=== PATIENT | female | born 1955 | race Hispanic/Latino ===

== ENCOUNTER 2017-11-16 12:34 | Emergency (ER) | payer MEDICARE ==
[~2017-11-16 12:34] MED LIST: CALC600T12 PO; HYDR25TA PO; LISI-613 PO; LOVA20TA3 PO; METF500T6 PO; TRAM50TA4 PO; VIT B12 PO
[2017-11-16] MEDS ORDERED: MORPHINE SULFATE 2 MG/ML 1ML SYG ONE (14:01)
[2017-11-16] MEDS ORDERED: ONDANSETRON 4 MG TABLET ONE (14:03)
[2017-11-16] MEDS ORDERED: BACLOFEN 10 MG TABLET PO ONE (14:03)
== END 2017-11-16 18:59 | disposition home or self-care (01) ==
LOC: EDH 12:34
DX: S13.9XXA Sprain of joints and ligaments of unspecified parts of neck, initial encounter (principal); S80.02XA Contusion of left knee, initial encounter; S80.01XA Contusion of right knee, initial encounter; S70.01XA Contusion of right hip, initial encounter; S09.90XA Unspecified injury of head, initial encounter; M54.5 Low back pain; I10 Essential (primary) hypertension; E78.5 Hyperlipidemia, unspecified; E11.9 Type 2 diabetes mellitus without complications; Z79.899 Other long term (current) drug therapy; Z88.8 Allergy status to other drugs, medicaments and biological substances; Z90.710 Acquired absence of both cervix and uterus; W01.0XXA Fall on same level from slipping, tripping and stumbling without subsequent striking against object, initial encounter; Y93.89 Activity, other specified; Y92.89 Other specified places as the place of occurrence of the external cause; Y99.8 Other external cause status
CPT/HCPCS: 36415; 70450; 70486; 72100; 72125; 73502; 73562 ×2; 83001; 84146; 84443; 96372; 99285; Q0162

== ENCOUNTER → 2018-10-04 | Outpatient (CLI) | payer MEDICARE ==
[~2018-10-04] MED LIST changes: +METF-444 PO; -METF500T6 PO
== END | disposition home or self-care (01) ==
LOC: RAH 08:58
PROVIDERS: ATTEND Family Medicine
DX: Z12.31 Encounter for screening mammogram for malignant neoplasm of breast (principal)
CPT/HCPCS: 77067

== ENCOUNTER → 2019-08-05 | Outpatient (CLI) | payer OTHER, MEDICARE | END | disposition home or self-care (01) | LOC: RAH 15:16 | PROVIDERS: ATTEND Orthopaedic Surgery | DX: M47.22 Other spondylosis with radiculopathy, cervical region (principal); M48.02 Spinal stenosis, cervical region | CPT/HCPCS: 72141 ==

== ENCOUNTER → 2019-10-13 | Outpatient (CLI) | payer OTHER, MEDICARE | END | disposition home or self-care (01) | LOC: RAH 14:33 | PROVIDERS: ATTEND Family Medicine | DX: Z12.31 Encounter for screening mammogram for malignant neoplasm of breast (principal) | CPT/HCPCS: 77067 ==

== ENCOUNTER → 2020-11-17 | Outpatient (CLI) | payer OTHER, MEDICARE ==
[~2020-11-17] MED LIST changes: -CALC600T12 PO; +CALC600T15 PO
== END | disposition home or self-care (01) ==
LOC: RAH 10:01
PROVIDERS: ATTEND Family Medicine
DX: Z12.31 Encounter for screening mammogram for malignant neoplasm of breast (principal)
CPT/HCPCS: 77067

== ENCOUNTER 2021-08-09 06:34 | Day surgery (SDC) | payer OTHER, MEDICARE ==
[2021-08-04 11:37] LABS: BASOPHILS % (AUTO) 1.1 % (0.0-5.0); EOSINOPHILS % (AUTO) 1.4 % (0.0-8.0); HEMATOCRIT 46.7 % (36-48); LYMPHOCYTES % (AUTO) 23.7 % (21.0-51.0); MEAN CORPUSCULAR HEMOGLOBIN 30.4 pg (27.0-33.0); MEAN CORPUSCULAR VOLUME 92.3 fL (79-99); MONOCYTES % (AUTO) 7.9 % (3.0-13.0); NEUTROPHILS % (AUTO) 65.4 % (40.0-77.0); PLATELET COUNT (AUTO) 238 K/uL (130-400); RED BLOOD CELL COUNT(AUTO) 5.06 MIL/uL (4.00-5.50); RED CELL DISTRIBUTION WIDTH 13.1 % (11.0-15.5); WHITE BLOOD COUNT (AUTO) 6.3 K/uL (4.8-10.8)
[2021-08-04 11:50] LABS: CREATININE 0.7 mg/dL (0.5-1.5); POTASSIUM 4.3 mmol/L (3.5-5.1)
[2021-08-04] MEDS: CEFAZOLIN SODIUM 1 GM VIAL IVP SCH (12:00)
[2021-08-08 11:55] VITALS: BP 174/95
[~2021-08-09] VITALS: Ht 172.7 cm; Wt 91.9 kg
[2021-08-09] VITALS (19 sets, daily range): BP systolic 106–153; BP diastolic 64–103
[~2021-08-09 06:34] MED LIST changes: -CALC600T15 PO; +DULO60CA64 PO; -LISI-613 PO; +LISI20TA24 PO; -TRAM50TA4 PO; -VIT B12 PO
[2021-08-09] MEDS ORDERED: 0.9%NACL 1000ML 1,000 ML IV ONE (06:42)
[2021-08-09] MEDS ORDERED: PROPOFOL 10 MG/ML 20ML VIAL IV ONE (07:24)
[2021-08-09] MEDS ORDERED: ONDANSETRON 4MG INJ ONE (07:24)
[2021-08-09] MEDS ORDERED: FENTANYL CITRATE PF 50 MCG/1 ML 2ML VIAL ONE (07:24)
[2021-08-09] MEDS ORDERED: MIDAZOLAM HCL 1 MG/ML 2ML VIAL ONE (07:24)
[2021-08-09] MEDS ORDERED: LIDOCAINE PF 100MG/5ML (2%) SYRINGE 5ML ONE (07:24)
[2021-08-09] MEDS ORDERED: DEXAMETHASONE SOD PHOSPHATE 10MG/ML 1ML VIAL ONE (07:24)
[2021-08-09] MEDS ORDERED: SUCCINYLCHOLINE 200MG/10ML SYR ONE (07:24)
[2021-08-09] MEDS ORDERED: MEPERIDINE-PF 25 MG/ML SYG ONE ×3 (07:25→09:11)
[2021-08-09] MEDS ORDERED: BUPIVACAINE/PF 0.25% 30ML VIAL IJ ONE (07:35)
[2021-08-09] MEDS: CEFAZOLIN SODIUM 1 GM VIAL IVP SCH (07:40)
[2021-08-09] MEDS ORDERED: BETA CAROTENE PO (07:59)
[2021-08-09] MEDS ORDERED: ANTIOXIDANT PO (07:59)
[2021-08-09] MEDS ORDERED: VITAMIN B50 PO (07:59)
[2021-08-09] MEDS ORDERED: VITAMIN B6 PO (07:59)
[2021-08-09] MEDS ORDERED: OMEGA 3 PO (07:59)
[2021-08-09] MEDS ORDERED: VITS1TAB2 PO (07:59)
[2021-08-09] MEDS ORDERED: MULT-1367 PO (07:59)
[2021-08-09] MEDS ORDERED: KETOROLAC 30MG VIAL (30MG/ML) ONE (08:20)
[2021-08-09] MEDS: ACETAMINOPHEN WITH CODEINE 1 TAB TAB ONE ×2 (10:35→11:13)
== END 2021-08-09 11:05 | disposition home or self-care (01) ==
LOC: DAH 06:34
PROVIDERS: ATTEND Orthopaedic Surgery Sports Medicine
DX: S83.241A Other tear of medial meniscus, current injury, right knee, initial encounter (principal); S83.281A Other tear of lateral meniscus, current injury, right knee, initial encounter; M22.41 Chondromalacia patellae, right knee; I10 Essential (primary) hypertension; E11.9 Type 2 diabetes mellitus without complications; X58.XXXA Exposure to other specified factors, initial encounter; Y93.89 Activity, other specified; Y92.89 Other specified places as the place of occurrence of the external cause; Y99.8 Other external cause status; Z20.822 Contact with and (suspected) exposure to COVID-19
CPT/HCPCS: 29880; 36415; 80048; 82948 ×2; 85025; 87635; 87641; 93005; A4215; A4221; A4222; A4223; A4649 ×4; A4663; A4930; A6223; C9803; J0330; J0690; J1100; J1885; J2001; J2175 ×3; J2250; J2405; J2704; J3010; J3490; J7030

== ENCOUNTER 2022-04-21 04:55 | Emergency (ER) | payer OTHER, MEDICARE ==
[~2022-04-21] VITALS: Ht 170.2 cm; Wt 90.7 kg
[~2022-04-21 04:55] MED LIST changes: +ANTIOXIDANT PO; +BETA CAROTENE PO; +MULT-1367 PO; +OMEGA 3 PO; +VITAMIN B50 PO; +VITAMIN B6 PO; +VITS1TAB2 PO
[2022-04-21 05:34] LABS: BASOPHILS % (AUTO) 0.4 % (0.0-5.0); EOSINOPHILS % (AUTO) 0.5 % (0.0-8.0); LYMPHOCYTES % (AUTO) 11.9 % (21.0-51.0); MEAN CORPUSCULAR HEMOGLOBIN 28.3 pg (27.0-33.0); MEAN CORPUSCULAR HGB CONC 32.3 g/dL (32.0-36.0); MEAN CORPUSCULAR VOLUME 87.6 fL (79-99); MONOCYTES % (AUTO) 6.2 % (3.0-13.0); NEUTROPHILS % (AUTO) 80.6 % (40.0-77.0); PLATELET COUNT (AUTO) 258 K/uL (130-400); RED BLOOD CELL COUNT(AUTO) 5.48 MIL/uL (4.00-5.50); RED CELL DISTRIBUTION WIDTH 13.4 % (11.0-15.5); WHITE BLOOD COUNT (AUTO) 14.3 K/uL (4.8-10.8)
[2022-04-21 05:42] LABS: APPEARANCE,URINE Clear (CLEAR); BILIRUBIN,URINE Negative (NEGATIVE); COLOR,URINE Yellow (YELLOW); GLUCOSE, URINE (UA) Negative (NEGATIVE); KETONES,URINE 15 mg/dL (NEGATIVE); LEUKOCYTE ESTERASE ,URINE Negative (NEGATIVE); NITRATE,URINE Negative (NEGATIVE); OCCULT BLOOD,URINE Negative (NEGATIVE); PH,URINE 5.5 (5.0-8.0); PROTEIN,URINE Negative (NEGATIVE); UROBILINOGEN,URINE 0.2 mg/dL (0.2-1.0)
[2022-04-21 05:54] LABS: ALBUMIN 4.5 g/dL (3.5-5.0); BILIRUBIN,TOTAL 0.5 mg/dL (0.2-1.0); CREATININE 0.8 mg/dL (0.5-1.5); TOTAL PROTEIN, SERUM 8.4 g/dL (6.0-8.3)
[2022-04-21 06:02] LABS: POTASSIUM 2.9 mmol/L (3.5-5.1)
[2022-04-21] MEDS ORDERED: KCL 20 MEQ ERTAB PO ONE (06:30)
[2022-04-21] MEDS ORDERED: ONDANSETRON 4MG INJ IVP ONE (07:30)
[2022-04-21] MEDS ORDERED: MORPHINE 4 MG SYG IVP ONE (07:30)
[2022-04-21 09:48] VITALS: BP 112/74
== END 2022-04-21 09:47 | disposition home or self-care (01) ==
LOC: EDH 04:55
DX: R10.9 Unspecified abdominal pain (principal); E87.6 Hypokalemia; K62.5 Hemorrhage of anus and rectum; E11.9 Type 2 diabetes mellitus without complications; I10 Essential (primary) hypertension; Z98.890 Other specified postprocedural states; Z90.49 Acquired absence of other specified parts of digestive tract; Z79.899 Other long term (current) drug therapy; Z79.84 Long term (current) use of oral hypoglycemic drugs
CPT/HCPCS: 36415; 74176; 80053; 81003; 83690; 85025; 96374; 96375; 99284; J2270; J2405

== ENCOUNTER → 2024-01-01 | Outpatient (CLI) | payer OTHER, MEDICARE | END | disposition home or self-care (01) | LOC: RAH 10:42 | PROVIDERS: ATTEND Family Medicine | DX: Z12.31 Encounter for screening mammogram for malignant neoplasm of breast (principal); N64.89 Other specified disorders of breast; R92.323 Mammographic fibroglandular density, bilateral breasts | CPT/HCPCS: 77067 ==

== ENCOUNTER 2024-04-14 15:52 | Emergency (ER) | payer OTHER, MEDICARE ==
[~2024-04-14] VITALS: Ht 170.2 cm; Wt 95.3 kg
[2024-04-14 15:54] VITALS: BP 145/85; PULSE 94; RESP 22
[2024-04-14] MEDS: KETOROLAC 30MG VIAL (30MG/ML) IM ONE (16:08)
[2024-04-14] MEDS ORDERED: ACET-66 PO (17:33)
== END 2024-04-14 18:00 | disposition home or self-care (01) ==
LOC: EDH 15:52
DX: R07.89 Other chest pain (principal); E11.9 Type 2 diabetes mellitus without complications; E78.00 Pure hypercholesterolemia, unspecified; Z79.84 Long term (current) use of oral hypoglycemic drugs; Z79.899 Other long term (current) drug therapy; Z90.49 Acquired absence of other specified parts of digestive tract; Z90.710 Acquired absence of both cervix and uterus
CPT/HCPCS: 99285; 84484; 36415; 71101; 96372; 93005; J1885

== ENCOUNTER → 2025-01-01 | Outpatient (CLI) | payer OTHER, MEDICARE ==
[~2025-01-01] MED LIST changes: +ACET-66 PO
--- NOTE | 2025-01-01 12:04 | HMCIMG ---
MAMMO SCREENING BILATERAL HISTORY: Screening mammogram. COMPARISON: 01/01/2025 TECHNIQUE: Bilateral screening mammogram with CAD was performed with craniocaudal and mediolateral oblique projections. FINDINGS: There are scattered areas of fibroglandular density. There is no evidence of a dominant mass, or suspicious microcalcification. There is no evidence of nipple retraction or skin thickening. IMPRESSION: 1. Stable mammogram. Patient was entered into a reminder system with a target due date for their next mammogram. BI-RADS: CATEGORY 2: BENIGN FINDINGS Recommend monthly self breast exam as well as annual clinical examination. A negative x-ray should not delay biopsy if a dominant or clinically suspicious mass is present, since 8-10% of cancers are not identified by mammography. Dense breasts particularly, may obscure an underlying neoplasm. Some of these may be detected clinically and therefore, clinical examination is an essential part of breast evaluation.
== END | disposition home or self-care (01) ==
LOC: RAH 09:45
PROVIDERS: ATTEND Family Medicine
DX: Z12.31 Encounter for screening mammogram for malignant neoplasm of breast (principal); R92.323 Mammographic fibroglandular density, bilateral breasts
CPT/HCPCS: 77067